=== PATIENT | female | born 1995 | race African-American/Black ===

== ENCOUNTER 2023-01-09 09:50 | Emergency (ER) | payer BC, SELFPAY ==
[2023-01-09 09:53] VITALS: BP 144/100; PULSE 102; RESP 18; TEMP 36.8; O2SAT 100
--- NOTE | 2023-01-09 10:06 | ED_ITS ---
HPI - Female Genitourinary General Chief complaint: Urogenital-Female Stated complaint: UTI sx Time Seen by Provider: 01/09/23 09:55 History of Present Illness HPI Narrative: 27-year-old female no medical problems presents to the emergency room for evaluation of dysuria, urinary frequency and urgency since yesterday. Patient reports that she frequently gets urinary tract infections. Denies fever, abdominal pain or back pain. Related Data Allergies Allergy/AdvReac Type Severity Reaction Status Date / Time No Known Allergies Allergy Verified 01/09/23 09:55 Review of Systems Review of Systems: CONSTITUTIONAL: Denies fever, chills, or sweats. EYES: Denies visual changes, redness, or discharge. ENT: Denies rhinorrhea, congestion, sore throat, or otalgia. CARDIOVASCULAR: Denies chest pain, palpitations, or edema. RESPIRATORY: Denies cough or dyspnea. GASTROINTESTINAL: Denies abdominal pain, nausea, vomiting, or diarrhea. GENITOURINARY: Per HPI, reports dysuria SKIN: Denies rash or itching. MUSCULOSKELETAL: Denies back pain, joint pain, or myalgia. NEUROLOGIC: Denies headache, numbness, dizziness, or weakness. PSYCHIATRIC: Denies anxiety or depression. Exam Narrative: GENERAL: Well-appearing, well-nourished, no physical limitations, and in no acute distress. HEAD: Normocephalic, atraumatic. EYES: Conjunctivae normal, PERRLA and EOMI. CHEST: Clear to auscultation. No respiratory distress. No wheezes rales or rhonchi. HEART: Regular rate and rhythm. No murmur heard. Normal peripheral pulses. ABDOMEN: Soft, suprapubic tenderness, nondistended, normal active bowel sounds. BACK: No CVA tenderness EXTREMITIES: Normal range of motion. No edema. No clubbing or cyanosis SKIN: Warm, dry, no rash. No noted wounds NEURO: No focal deficits. Alert and oriented x3. MAEW. CN's II-XI intact bilaterally, normal gait PSYCH: Cooperative. Normal mood and affect. Course Vital Signs Vital signs: Vital Signs Temperature 36.8 C 01/09/23 09:53 Pulse Rate 102 H 01/09/23 09:53 Respiratory Rate 18 01/09/23 09:53 Blood Pressure 144/100 H 01/09/23 09:53 Pulse Oximetry 100 01/09/23 09:53 Temperature 36.8 C 01/09/23 09:53 Pulse Rate 102 H 01/09/23 09:53 Respiratory Rate 18 01/09/23 09:53 Blood Pressure 144/100 H 01/09/23 09:53 Pulse Oximetry 100 01/09/23 09:53 Discharge Plan Discharge Clinical Impression: Urinary tract infection Patient Disposition: Home, Self-Care Condition: Stable Instructions: Antibiotic Form, Urinary Tract Infection in Women (ED) Prescriptions: New cephalexin 500 mg capsule 500 mg PO Q12H Qty: 14 0RF phenazopyridine [Pyridium] 200 mg tablet 200 mg PO TID Qty: 6 0RF Follow-up/Referrals: PHYSICIAN,[facility] [Non-Staff] - Time of Disposition: 10:30
[2023-01-09 10:21] LABS: Appearance Urine Cloudy (Clear); Bacteria Urine 4+ /hpf; Bilirubin Urine Negative (Negative); Blood Urine Negative (Negative); Color Urine Yellow (Yellow); Glucose Urine UA Negative (Negative); Ketones Urine Negative (Negative); Leukocyte Esterase Ur 1+ LEU/UL (Negative); Nitrate Urine Negative (Negative); Protein Urine Negative (Negative); Specific Grav Ur 1.025 (1.001-1.035); Squamous Epithelial Cell Urine Few /hpf (Few); Urobilinogen Urine 0.2 mg/dL (<2.0); pH Urine 5.5 (5.0-9.0)
[2023-01-09 10:27] LABS: Add Urine Microscopic? YES
== END 2023-01-09 10:48 | disposition home or self-care (01) ==
PROVIDERS: Emergency Provider Nurse Practitioner Family; PCP Emergency Medicine
DX: N39.0 Urinary tract infection, site not specified (principal)
CPT/HCPCS: 81001; 87086; 99283

== ENCOUNTER 2023-01-25 01:56 | Emergency (ER) | payer BC, SELFPAY ==
[2023-01-25 02:00] VITALS: BP 138/90; PULSE 80; RESP 20; TEMP 36.4; O2SAT 99
[2023-01-25 02:35] VITALS: BP 109/76; PULSE 87; RESP 15; TEMP 37; O2SAT 100
[2023-01-25 02:48] LABS: Basophils Percent Auto 0.3 % (0.2-1.2); Eosinophils Absolute Auto 0.2 K/mm3 (0-0.3); Eosinophils Percent Auto 1.6 % (0-4.4); Hematocrit 39.1 % (37.0-47.0); Hemoglobin 12.5 g/dL (12.0-15.0); Immature Granulocyte Absolute 0.04 K/mm3 (0.00-0.031); Immature Granulocyte Percent A 0.3 % (0-0.5); Lymphocytes Absolute Auto 3.96 K/mm3 (0.9-3.2); Lymphocytes Percent Auto 33.4 % (18.3-44.2); Mean Corpuscular Volume 78.2 fl (80-100); Monocytes Absolute Auto 0.8 K/mm3 (0.1-0.6); Monocytes Percent Auto 6.6 % (2.6-8.5); Neutrophils Absolute Auto 6.8 K/mm3 (1.3-6.7); Neutrophils Percent Auto 57.8 % (45.5-73.1); Platelet Count Result 337 k/mm3 (150-375); Red Cell Distribution Width 15.7 % (11.5-14.5); White Blood Count 11.8 K/mm3 (4.5-10.0)
[2023-01-25 02:59] LABS: Alanine Aminotransferase 22 U/L (6-35); Albumin Level 3.9 g/dL (3.5-5.1); Alkaline Phosphatase 77 U/L (38-126); Anion Gap 5 mmol/L (8-16); Aspartate Amino Transferase 28 U/L (14-36); Bilirubin,Total 0.3 mg/dL (0.2-1.3); Blood Urea Nitrogen 10 mg/dL (7-17); Calcium 8.6 mg/dL (8.4-10.2); Carbon Dioxide 27 mmol/L (22-30); Chloride 106 mmol/L (98-107); Estimated CRCL calculation 152 ml/min; Estimated Glomerular Filt Rate > 60; Glucose 104 mg/dL (65-110); Lipase 118 U/L (23-300); Sodium 138 mmol/L (137-145)
[2023-01-25 03:01] LABS: Appearance Urine Cloudy (Clear); Bacteria Urine 4+ /hpf; Bilirubin Urine Negative (Negative); Blood Urine Negative (Negative); Color Urine Yellow (Yellow); Glucose Urine UA Negative (Negative); Ketones Urine Negative (Negative); Leukocyte Esterase Ur 1+ LEU/UL (Negative); Need Manual Microscopic Reviewed; Nitrate Urine Negative (Negative); Protein Urine Negative (Negative); Specific Grav Ur 1.018 (1.001-1.035); Squamous Epithelial Cell Urine Occasional /hpf (Few); Urobilinogen Urine 0.2 mg/dL (<2.0)
[2023-01-25 03:03] LABS: Add Urine Microscopic? YES
--- NOTE | 2023-01-25 03:20 | ED.GENADULT ---
HPI - General Adult General Chief complaint: Abdominal Pain Stated complaint: pelvic pain/ abd pain Time Seen by Provider: 01/25/23 02:30 History of Present Illness HPI narrative: This is a 27-year-old female presenting ED with chief complaint of irritation while urinating. She was treated for UTI 2 weeks ago with a course of Keflex. Her symptoms improved but now they have come back. Her symptoms include burning when she urinates, some suprapubic discomfort. No fever chills nausea vomiting or diarrhea. Patient gets frequent UTIs. Related Data Allergies Allergy/AdvReac Type Severity Reaction Status Date / Time No Known Allergies Allergy Verified 01/09/23 09:55 Exam Narrative: APPEARANCE: No apparent distress. Patient is well-appearing Head: atraumatic EYES: EOMI, NOSE: Atraumatic NECK: Trachea midline RESPIRATORY: No increased rate of breathing, clear to auscultation CARDIOVASCULAR: RRR, ABDOMINAL: Non-distended, nontender no guarding or rebound MUSCULOSKELETAl: No obvious deformities NEURO: Alert. Moving 4/4 extremities SKIN:: Warm, dry. Normal color PSYCHIATRIC: Normal affect Course Vital Signs Vital signs: Vital Signs Temperature 97.6 F 01/25/23 02:00 Pulse Rate 80 01/25/23 02:00 Respiratory Rate 20 01/25/23 02:00 Blood Pressure 138/90 01/25/23 02:00 Pulse Oximetry 99 01/25/23 02:00 Oxygen Delivery Room Air 01/25/23 02:00 Temperature 98.6 F 01/25/23 02:35 Pulse Rate 87 01/25/23 02:35 Respiratory Rate 15 01/25/23 02:35 Blood Pressure 109/76 01/25/23 02:35 Pulse Oximetry 100 01/25/23 02:35 Oxygen Delivery Room Air 01/25/23 02:00 Medical Decision Making [facility] Narrative Medical decision making narrative: -Presentation: 27-year-old female presenting with urinary symptoms. -DDX includes but is not limited to: UTI, pyelo, interstitial cystitis -Co-morbidities complicating care: frequent UTIs -Social determinants of health: works at [employer], lives alone -External Chart Review: review of previous ER notes for UTI, review of culture results which had no growth -Hx from independent Sources: none -Discussion of Management/Consultants: none -Independent interpretation of studies: UA was indicative of infection. Dx tests considered but not ordered: None -Procedures: none -Interventions: Bactrim double-strength -Shared decision making / Disposition: patient's urine is still indicative of infection. Will send cultures and started on a different antibiotic. She has follow-up with her primary care physician on Saturday. -RX: Bactrim DS b.i.d. x5 days Vital Signs Vital Signs: Vital Signs Temperature 97.6 F 01/25/23 02:00 Pulse Rate 80 01/25/23 02:00 Respiratory Rate 20 01/25/23 02:00 Blood Pressure 138/90 01/25/23 02:00 Pulse Oximetry 99 01/25/23 02:00 Oxygen Delivery Room Air 01/25/23 02:00 Temperature 98.6 F 01/25/23 02:35 Pulse Rate 87 01/25/23 02:35 Respiratory Rate 15 01/25/23 02:35 Blood Pressure 109/76 01/25/23 02:35 Pulse Oximetry 100 01/25/23 02:35 Oxygen Delivery Room Air 01/25/23 02:00 Lab Data 01/25/23 02:08 01/25/23 02:08 Labs: Lab Results 01/25/23 Range/Units 02:08 WBC 11.8 H (4.5-10.0) K/mm3 RBC 5.00 (4.2-5.4) M/mm3 Hgb 12.5 (12.0-15.0) g/dL Hct 39.1 (37.0-47.0) % MCV 78.2 L (80-100) fl MCH 25.0 L (26-34) pg MCHC 32.0 (32-36) g/dl RDW 15.7 H (11.5-14.5) % Plt Count 337 (150-375) k/mm3 MPV 11.0 H (7.4-10.4) fl Immature Gran % (Auto) 0.3 (0-0.5) % Neut % (Auto) 57.8 (45.5-73.1) % Lymph % (Auto) 33.4 (18.3-44.2) % [place] % (Auto) 6.6 (2.6-8.5) % Eos % (Auto) 1.6 (0-4.4) % Baso % (Auto) 0.3 (0.2-1.2) % Lymph # (Auto) 3.96 H (0.9-3.2) K/mm3 [place] # (Auto) 0.8 H (0.1-0.6) K/mm3 Eos # (Auto) 0.2 (0-0.3) K/mm3 Baso # (Auto) 0.0 (0.0-0.1) K/mm3 Abs Immat Gran (auto)
[2023-01-25] MEDS: SULFAMETHOXAZOLE/TRIMETHOPRIM 800/160 MG DS TABLET 1 TAB PO (03:38)
[2023-01-25 03:41] VITALS: BP 129/93; PULSE 80; RESP 14; TEMP 37; O2SAT 100
== END 2023-01-25 03:42 | disposition home or self-care (01) ==
PROVIDERS: Emergency Provider Emergency Medicine; PCP Emergency Medicine
DX: N39.0 Urinary tract infection, site not specified (principal)
CPT/HCPCS: 36415; 80053; 81001; 81025; 83690; 85025; 87086; 99283; A9270